=== PATIENT | female | born 1985 ===

== ENCOUNTER 2016-11-11 13:27 | Emergency (ER) | payer OTHER ==
[2016-11-11 15:29] VITALS: BP 110/75; PULSE 90; RESP 18; TEMP 98; O2SAT 100
--- NOTE | 2016-11-11 16:09 | C.PDOC ---
History Of Present Illness 31 yr old female presents to the ER with complaints of left shoulder pain. Patient is a [employer] employee. Patient states 1 year ago she injured her shoulder but never had any sort of follow up or proper diagnoses. State sthe pain comes back when she is usually doing any sort of heavy work, but this week the pain has increased, reports 6/10, dull and has decrease ROM, flexion and extension over the rotator cuff. Patient denies fever, chills, chest pain, vomiting, neck pain, headache, back pain, weakness or numbness. Time Seen by Provider: 11/11/16 15:49 Chief Complaint (Nursing): Upper Extremity Problem/Injury History Per: Patient History/Exam Limitations: no limitations Onset/Duration Of Symptoms: Persistent Current Symptoms Are (Timing): Still Present Quality: Dull Pain Scale Rating Of: 6 Past Medical History Reviewed: Historical Data, Nursing Documentation, Vital Signs Vital Signs: Last Vital Signs Temp 98.0 F 11/11/16 15:27 Pulse 90 11/11/16 15:27 Resp 18 11/11/16 15:27 BP 110/75 11/11/16 15:27 Pulse Ox 100 11/11/16 16:10 - Medical History PMH: Asthma, Gastrointestinal Ulcer Family History: States: No Known Family Hx - Social History Hx Tobacco Use: No Hx Alcohol Use: No Hx Substance Use: No - Immunization History Hx Tetanus Toxoid Vaccination: Yes Hx Influenza Vaccination: Yes Hx Pneumococcal Vaccination: Yes Review Of Systems Except As Marked, All Systems Reviewed And Found Negative. Constitutional: Negative for: Fever, Chills Cardiovascular: Negative for: Chest Pain Gastrointestinal: Negative for: Vomiting Musculoskeletal: Positive for: Shoulder Pain (Left ). Negative for: Neck Pain, Back Pain Neurological: Negative for: Weakness, Numbness, Headache Physical Exam - Physical Exam Appears: Well, Non-toxic, No Acute Distress Skin: Warm, Dry, No Rash Head: Atraumatic, Normacephalic Oral Mucosa: Moist Chest: Symmetrical, No Tenderness Cardiovascular: Rhythm Regular, No Murmur Respiratory: Normal Breath Sounds, No Rales, No Rhonchi, No Stridor, No Wheezing Extremity: Tenderness (Right Shoulder - Tenderness to the AC joint and anterior glumar fossa), No Deformity, Other (Decrease ROM left shoulder) Neurological/Psych: Oriented x3, Normal Speech, Normal Motor ED Course And Treatment O2 Sat by Pulse Oximetry: 100 Disposition Counseled Patient/Family Regarding: Diagnosis, Need For Followup, Rx Given - Disposition Referrals: Ran Olson MD [Non-Staff] - Wendy Bradford MD [Staff Provider] - Disposition: HOME/ ROUTINE Disposition Time: 16:07 Condition: GOOD Prescriptions: traMADol/Acetaminophen [Ultracet 37.5/325 mg] 1 tab PO HS PRN #12 tab PRN Reason: pain Instructions: Musculoskeletal Pain (ED) Forms: General Discharge Instructions - Clinical Impression Clinical Impression: Musculoskeletal pain - Scribe Statement The provider has reviewed the documentation as recorded by the Scribe Marcella Andrea Provider Attestation: All medical record entries made by the Scribe were at my direction and personally dictated by me. I have reviewed the chart and agree that the record accurately reflects my personal performance of the history, physical exam, medical decision making, and the department course for this patient. I have also personally directed, reviewed, and agree with the discharge instructions and disposition.
== END 2016-11-11 16:13 | disposition home or self-care (01) ==
LOC: C.ER 13:27
DX: M79.1 Myalgia (principal)

== ENCOUNTER 2018-06-23 13:08 | Emergency (ER) | payer OTHER ==
[2018-06-23 13:31] VITALS: BP 125/73; PULSE 74; RESP 20; TEMP 98.3; O2SAT 99
[2018-06-23 14:50] LABS: HCG,QUALITATIVE URINE NEGATIVE (NEGATIVE)
[2018-06-23 14:54] LABS: SQUAMOUS EPITHIAL 4 /hpf (0-5); URINE BACTERIA RARE (<OCC); URINE BILIRUBIN NEGATIVE (NEGATIVE); URINE BLOOD 1+ (NEGATIVE); URINE CLARITY Hazy (Clear); URINE COLOR Yellow (YELLOW); URINE GLUCOSE (UA) NORMAL (Normal); URINE LEUKOCYTE ESTERASE TRACE Leu/uL (Negative); URINE PROTEIN NEGATIVE (NEGATIVE); URINE UROBILINOGEN NORMAL mg/dL (0.2-1.0)
--- NOTE | 2018-06-23 15:01 | C.PDOC ---
History Of Present Illness 33 yo female come in for evaluation of Right flank pain gradually developed since today AM. Pt reports, pain is localized and worse with movement. Pt denies any known trauma or injury, fever, c hills, CP, SOB, dyspnea, cough, abd. pain, N/V/D, UTI sx, vaginal discharge. Ambulate to ED for evaluation, not in any apparent distress. Time Seen by Provider: 06/23/18 14:12 Chief Complaint (Nursing): Back Pain History Per: Patient Past Medical History Reviewed: Historical Data, Nursing Documentation, Vital Signs Vital Signs: Last Vital Signs Temp 98.3 F 06/23/18 13:27 Pulse 74 06/23/18 13:27 Resp 20 06/23/18 13:27 BP 125/73 06/23/18 13:27 Pulse Ox 99 06/23/18 13:27 - Medical History PMH: Asthma, Gastrointestinal Ulcer Denies: Chronic Kidney Disease Family History: States: Unknown Family Hx - Social History Hx Tobacco Use: No Hx Alcohol Use: No Hx Substance Use: No - Immunization History Hx Tetanus Toxoid Vaccination: Yes Hx Influenza Vaccination: Yes Hx Pneumococcal Vaccination: Yes Review Of Systems Except As Marked, All Systems Reviewed And Found Negative. Constitutional: Negative for: Fever, Chills ENT: Negative for: Throat Pain Cardiovascular: Negative for: Chest Pain, Palpitations, Light Headedness Respiratory: Negative for: Cough, Shortness of Breath, Wheezing Gastrointestinal: Negative for: Nausea, Vomiting, Abdominal Pain Musculoskeletal: Positive for: Back Pain Skin: Negative for: Rash Neurological: Negative for: Weakness, Numbness, Altered Mental Status Physical Exam - Physical Exam Appears: Well, Non-toxic, No Acute Distress Skin: Normal Color, Warm, Dry, No Rash Head: Normacephalic Eye(s): bilateral: PERRL Nose: No Flaring, No Discharge Oral Mucosa: Moist Throat: No Erythema Neck: Supple Cardiovascular: Rhythm Regular, No Murmur, No JVD Respiratory: No Decreased Breath Sounds, No Accessory Muscle Use, No Stridor, No Wheezing Gastrointestinal/Abdominal: Soft, No Tenderness, No Distention, No Guarding, No Rebound Back: No CVA Tenderness, No Vertebral Tenderness, No Paraspinal Tenderness, Other (Right periscapular tenderness extend down to Right flank, no edema, no skin changes. No palpable deformity.) Extremity: Normal ROM, No Pedal Edema, No Deformity, No Swelling Neurological/Psych: Oriented x3, Normal Speech, Normal Motor, Normal Sensation, Normal Reflexes ED Course And Treatment O2 Sat by Pulse Oximetry: 99 Pulse Ox Interpretation: Normal Progress Note: On re-evaluation, pt is afebrile, hemodynamicaly stable. Non- toxic. Ambulatory in ED with stable gait. ABd: benign, (-) guarding, (-) rebound. back: (-) CVA tenderness. Neurological intact. UA- no acute findings. Pt has clinical findings c/w Right flank pain r/o musculoskeletal pain. Pt advised. ref. to F/u with PMD in 2-3 days for re-eval. return if any new changes. Disposition Counseled Patient/Family Regarding: Studies Performed, Diagnosis, Need For Followup, Rx Given - Disposition Referrals: Irvin Terrazas MD [Staff Provider] - Disposition: HOME/ ROUTINE Disposition Time: 14:57 Condition: STABLE Additional Instructions: Light duty, avoid heavy lifting take medication as prescribed as need Follow up with PMD in 2-3 days for re-evaluation. return to Ed if any worsening or new changes. Prescriptions: Ibuprofen [Motrin Tab] 600 mg PO BID #14 tab Methocarbamol [Robaxin] 500 mg PO TID #14 tab traMADol [Ultram] 50 mg PO TID #7 tab Instructions: Flank Pain - Clinical Impression Clinical Impression: Musculoskeletal pain
== END 2018-06-23 15:17 | disposition home or self-care (01) ==
LOC: C.ER 13:08
DX: M79.18 Myalgia, other site (principal)

== ENCOUNTER 2018-08-14 10:44 | Outpatient (CLI) | payer OTHER | END 2018-08-14 10:45 | disposition home or self-care (01) | LOC: C.USIC 10:45 ==

== ENCOUNTER 2018-08-17 16:17 | Outpatient (CLI) | payer OTHER | END 2018-08-17 16:18 | disposition home or self-care (01) | LOC: C.MRIC 16:18 ==

== ENCOUNTER 2018-09-05 08:20 | Outpatient (CLI) | payer OTHER | END 2018-09-05 08:21 | disposition home or self-care (01) | LOC: C.CTH 08:20 ==

== ENCOUNTER 2018-09-17 11:54 | Outpatient (CLI) | payer OTHER | END 2018-09-17 11:55 | disposition home or self-care (01) | LOC: C.PAT 11:54 | DX: K42.9 Umbilical hernia without obstruction or gangrene (principal); K76.0 Fatty (change of) liver, not elsewhere classified ==

== ENCOUNTER 2018-09-23 06:09 | Day surgery (SDC) | payer OTHER ==
[2018-09-17 12:05] VITALS: BMI 44.4
[2018-09-23] MEDS ORDERED: ceFAZolin 1 gm in NS 1 GM/100 ML BAG IVPB ONE (07:23)
[2018-09-23] MEDS ORDERED: Sodium Chloride 0.9% 20 ML IV ONE ×2 (07:23→09:15)
[2018-09-23] MEDS ORDERED: Bupivacaine 0.25% 20 ML INJ IJ ONE (07:23)
[2018-09-23] MEDS ORDERED: Lidocaine/Epinephrine 1% 1:100000 10 ML IJ ONE (07:23)
[2018-09-23] MEDS ORDERED: Midazolam 2 MG/2 ML VIAL ONE (07:44)
[2018-09-23] MEDS ORDERED: Propofol 10 mg/ml Inj (20 ML) ONE (07:46)
[2018-09-23] MEDS ORDERED: Bupivacaine Liposomal Inj 20 ml INJ ONE (08:04)
[2018-09-23] MEDS ORDERED: Succinylcholine Chloride 20 mg/ml Syr (5 ml) IV ONE (08:08)
[2018-09-23] MEDS ORDERED: Neostigmine 1:1000 (1 mg/ml) Inj ONE (10:00)
[2018-09-23] MEDS ORDERED: Morphine 4 MG/ML VIAL ONE (10:28)
[2018-09-23] MEDS ORDERED: HYDROmorphone 0.5 mg/0.5 ml ISec IVP PRN (10:42)
--- NOTE | 2018-09-23 10:51 | PCM.SURG1 ---
Surgeon's Initial Post Op Note - Surgeon's Notes Surgeon: Sadiq Graham MD Manager Decision Support: DIEGO Alarcon Type of Anesthesia: General Endo Pre-Operative Diagnosis: Umbilical Hernia. Morbid Obesity. Fatty Liver. Abdominal Pain Operative Findings: Umbilical Hernia 2x2 cm. Diastasis of Rectus muscles 8x4 cm. Ventral hernia in upper midline 2x2 cm. Morbid Obesity. Fatty Liver Post-Operative Diagnosis: Umbilical Hernia 2x2 cm. Diastasis of Rectus muscles 8x4 cm. Ventral hernia in upper midline 2x2 cm. Morbid Obesity. Fatty Liver Operation Performed: Robotic Umbilical Hernia repair with mesh 2x2 cm. Robotic Diastasis of Rectus muscles repair with mesh 8x4 cm. Robotic Ventral hernia in upper midline repair with mesh 2x2 cm. Lap B/L TAP Block placement. Liver biopsy true cut Specimen/Specimens Removed: Umbilical hernia sac and content. Ventral hernia sac and content. Liver biopsy Estimated Blood Loss: EBL {In ML}: 10 Blood Products Given: N/A Drains Used: No Drains Post-Op Condition: Good Date of Surgery/Procedure: 09/23/18 Time of Surgery/Procedure: 10:52
[2018-09-23 12:33] VITALS: RESP 18
--- NOTE | 2018-09-23 14:18 | OP ---
PROCEDURE DATE: 09/23/2018 PREOPERATIVE DIAGNOSES: 1. Umbilical hernia. 2. Fatty liver. 3. Morbid obesity. 4. Upper abdominal pain. POSTOPERATIVE DIAGNOSES: 1. Umbilical hernia, approximately 2 x 2 cm size. 2. Ventral hernia in upper midline. 3. Diastasis recti, 8 x 4 cm size. 4. Fatty liver. 5. Morbid obesity. PROCEDURES DONE: 1. Robotic umbilical hernia repair with mesh. 2. Robotic ventral hernia repair with mesh. 3. Robotic diastasis recti repair with mesh. 4. Laparoscopic bilateral transverse abdominis plane block placement. 5. Liver biopsy, Ismael-Cut. SURGEON: Ted Graham MD SENIOR APPLICATIONS ENGINEER: DIEGO Antonio ANESTHESIA: General endotracheal tube anesthesia. ESTIMATED BLOOD LOSS: Around 10 mL DRAINS: None. SPECIMENS TO PATHOLOGY: 1. Umbilical hernia with sac and content was sent to pathology. 2. Ventral hernia with sac and content was sent to pathology. COMPLICATIONS: None. INTRAOPERATIVE FINDINGS: The patient had diastasis of the rectus muscles of approximately 8 x 4 cm size and the patient also had ventral hernia through the diastasis and that was 2 x 2 cm in size in upper midline. The patient had umbilical hernia of 2 x 2 cm size. INTRAOPERATIVE STEPS: This is a 33-year-old female who was diagnosed with fatty liver, umbilical hernia and the patient had upper abdominal pain and the patient was consented for robotic umbilical hernia repair with mesh, with liver biopsy Ismael-Cut, and the patient was brought to the OR, placed supine on the operating table. After induction of anesthesia, the abdomen was prepped and draped in the usual sterile fashion. The left upper quadrant incision was made using the Visiport technique. Peritoneal cavity was entered. Pneumo was created. Another 3-mm port was placed in the left flank and left lower quadrant. After that the robot was brought in. Camera arm as well as arm 1 and arm 2 were docked. First, the umbilical hernia was reduced back into the peritoneal cavity and preperitoneal dissection was done. The patient had diastasis recti approximately 8 x 4 cm starting in the supraumbilical region; and the patient also had another ventral hernia through the diastasis recti and that was also reduced and the sac was excised and it was sent off the table for pathology. Now the umbilical hernial defect was closed with #1 Prolene V-Loc suture in two layers. Then, the diastasis recti was also repaired with approximation of the right and left rectus muscles in the midline and repair was done in a two layer; and the ventral hernia defect that was in the upper part of diastasis that was also repaired with #1 Prolene V-Loc suture in a two layer; and after that the large 12 x 8 cm mesh was introduced and the mesh was placed to cover all the defects and the mesh was implanted laparoscopically after undocking the robot and removing all the instruments; and now the liver biopsy was done percutaneously. The pass was made to the liver and the biopsy specimen was sent off the table for the pathology and now the laparoscopic tap block was given. The 30:30 mL of Exparel with Decadron was given in the left and right transverse abdominal muscles plane area, and after proper tap block, all the ports were taken out under vision. Pneumo was deflated. All the port sites were closed in two layers, subcu with 2-0 Vicryl, skin with 4-0 Monocryl, and dry sterile dressing was applied. The patient tolerated the procedure well. Count of instrument and gauze was correct. There was no apparent complication. The patient was extubated in OR and sent to the postanesthesia care unit in stable condition. Ted Graham MD
[2018-09-23 15:36] VITALS: BP 99/56; PULSE 89; TEMP 97.6; O2SAT 97
== END 2018-09-23 15:45 | disposition home or self-care (01) ==
LOC: C.SDS 06:09
PROVIDERS: ATTEND Surgery Surgical Critical Care
DX: K42.9 Umbilical hernia without obstruction or gangrene (principal); K76.0 Fatty (change of) liver, not elsewhere classified; K43.9 Ventral hernia without obstruction or gangrene; M62.08 Separation of muscle (nontraumatic), other site; E66.01 Morbid (severe) obesity due to excess calories; R10.10 Upper abdominal pain, unspecified; Z68.41 Body mass index [BMI] 40.0-44.9, adult
CPT/HCPCS: 22999; 36415; 47000; 49652; 64488; 86850; 86900; 88302; 88307; C1781; J0690; J2250; J2270; J2405; J2704; J2710; J3010

== ENCOUNTER 2018-10-26 12:07 | Emergency (ER) | payer OTHER ==
[2018-10-26 12:07] VITALS: BMI 44.4
[2018-10-26 13:04] VITALS: RESP 18; O2SAT 100
[2018-10-26 14:31] LABS: BASO % 0.3 % (0.0-2.0); EOS # 0.1 K/uL (0.0-0.7); HEMOGLOBIN 14.3 g/dL (11.0-16.0); LYMPH # 2.9 K/uL (1.0-4.3); MEAN CORPUSCULAR HEMOGLOBIN 29.9 pg (27.0-31.0); MEAN CORPUSCULAR HGB CONC 33.7 g/dL (33.0-37.0); MEAN PLATELET VOLUME 8.3 fL (7.2-11.7); MONO # 0.7 K/uL (0.0-0.8); MONO % 6.8 % (0.0-10.0); NEUT # 6.6 K/uL (1.8-7.0); NEUT % 63.9 % (50.0-75.0); NRBC % 0.1 % (0.0-2.0); RBC 4.77 Mil/uL (3.80-5.20); RED CELL DISTRIBUTION WIDTH 13.9 % (11.5-14.5); WHITE BLOOD COUNT 10.3 K/uL (4.8-10.8)
[2018-10-26 14:33] LABS: HCG,QUALITATIVE URINE NEGATIVE (NEGATIVE)
[2018-10-26 14:33] LABS: MEAN CELL VOLUME 88.7 fL (81.0-99.0)
[2018-10-26 14:48] LABS: SQUAMOUS EPITHIAL 6 /hpf (0-5); URINE BACTERIA RARE (<OCC); URINE BILIRUBIN NEGATIVE (NEGATIVE); URINE BLOOD 3+ (NEGATIVE); URINE CLARITY Hazy (Clear); URINE COLOR Yellow (YELLOW); URINE GLUCOSE (UA) NORMAL (Normal); URINE LEUKOCYTE ESTERASE 3+ Leu/uL (Negative); URINE PROTEIN NEGATIVE (NEGATIVE); URINE UROBILINOGEN NORMAL mg/dL (0.2-1.0)
[2018-10-26] MEDS ORDERED: Sodium Chloride 0.9% 1,000 ML IV ONE (15:04)
--- NOTE | 2018-10-26 15:24 | C.PDOC ---
History Of Present Illness 33 y/o female presents to the ER complaining of abdominal pain which began last night. Patient states that she had a hernia repair performed by on 09/23/18. Patient reports that she has subjective fever,chills, and nausea. She notes that she took Aleve without significant relief.Denies having CP, SOB, and vomiting. Time Seen by Provider: 10/26/18 14:30 Chief Complaint (Nursing): Abdominal Pain History Per: Patient History/Exam Limitations: no limitations Onset/Duration Of Symptoms: Days Current Symptoms Are (Timing): Still Present Severity: Moderate Past Medical History Reviewed: Historical Data, Nursing Documentation, Vital Signs Vital Signs: Last Vital Signs Temp 98.5 F 10/26/18 13:00 Pulse 77 10/26/18 13:00 Resp 18 10/26/18 13:00 BP 109/74 10/26/18 13:00 Pulse Ox 100 10/26/18 13:00 - Medical History PMH: Asthma (SEASONAL NO MEDS), Colonic Polyps, Gastritis, Gastrointestinal Ulcer, Migraine (APPT. NEUROLOGIST 09-28-18) Denies: Chronic Kidney Disease Surgical History: Endoscopy Family History: States: No Known Family Hx - Social History Hx Tobacco Use: No Hx Alcohol Use: No Hx Substance Use: No - Immunization History Hx Tetanus Toxoid Vaccination: Yes Hx Influenza Vaccination: No Hx Pneumococcal Vaccination: Yes Review Of Systems Except As Marked, All Systems Reviewed And Found Negative. Constitutional: Positive for: Fever (subjective fever), Chills Cardiovascular: Negative for: Chest Pain Respiratory: Negative for: Shortness of Breath Gastrointestinal: Positive for: Nausea, Abdominal Pain. Negative for: Vomiting Physical Exam - Physical Exam Appears: Non-toxic, No Acute Distress Skin: Normal Color, Warm, Dry Head: Atraumatic, Normacephalic Eye(s): bilateral: Normal Inspection Nose: Normal Oral Mucosa: Moist Neck: Supple Chest: Symmetrical Cardiovascular: Rhythm Regular Respiratory: Normal Breath Sounds, No Rales, No Rhonchi, No Wheezing Gastrointestinal/Abdominal: Soft, Tenderness (diffuse tenderness), No Guarding, No Rebound, Other (obese) Neurological/Psych: Oriented x3, Normal Speech ED Course And Treatment - Laboratory Results Result Diagrams: 10/26/18 14:21 10/26/18 15:41 Lab Results: Urine Color Yellow (YELLOW) 10/26/18 14:16 Urine Clarity Hazy (Clear) 10/26/18 14:16 Urine pH 5.0 (5.0-8.0) 10/26/18 14:16 Ur Specific [place] 1.011 (1.003-1.030) 10/26/18 14:16 Urine Protein Negative mg/dL (NEGATIVE) 10/26/18 14:16 Urine Glucose (UA) Normal mg/dL (Normal) 10/26/18 14:16 Urine Ketones Negative mg/dL (NEGATIVE) 10/26/18 14:16 Urine Blood 3+ (NEGATIVE) H 10/26/18 14:16 Urine Nitrate Negative (NEGATIVE) 10/26/18 14:16 Urine Bilirubin Negative (NEGATIVE) 10/26/18 14:16 Urine Urobilinogen Normal mg/dL (0.2-1.0) 10/26/18 14:16 Ur Leukocyte Esterase 3+ Cynthia/uL (Negative) H 10/26/18 14:16 Urine WBC (Auto) 52 /hpf (0-5) H 10/26/18 14:16 Urine RBC (Auto) 31 /hpf (0-3) H 10/26/18 14:16 Ur Squamous Epith Cells 6 /hpf (0-5) H 10/26/18 14:16 Urine Bacteria Rare (<OCC) 10/26/18 14:16 Urine HCG, Qual Negative (NEGATIVE) 10/26/18 14:16 Urine HCG, Qual Negative (NEGATIVE) 10/26/18 14:16 O2 Sat by Pulse Oximetry: 100 (RA) Pulse Ox Interpretation: Normal Medical Decision Making Medical Decision Making: Plan: --Labs --UA --HCG, Qual. --Pepcid IV --IV Fluids Disposition - Disposition Disposition: HOME/ ROUTINE Disposition Time: 18:28 Condition: STABLE Forms: [facility] (Belgian) - Clinical Impression Clinical Impression: Abdominal pain - Scribe Statement The provider has reviewed the documentation as recorded by the Jaibe Magdi Agosto Provider Attestation: All medical record entries made by the Scribe were at my direction and personally dictated by me. I have reviewed the chart and agree that the record accurately reflects my personal performance of the history, physical exam, medical decision making, and the department course for this patient. I have also personally directed, reviewed, and agree with the discharge instructions and disposition. Physician Patient Turnover Patient Signed Over To: Catina Samaniego Handoff Comments: Pending CT abdomen and discussion with Dr. Hull
[2018-10-26] MEDS ORDERED: Sodium Chloride 0.9% 1,000 ML ONE (15:28)
[2018-10-26] MEDS ORDERED: Iohexol 240 (50 ml) PO STA (15:33)
[2018-10-26] MEDS ORDERED: Iohexol 240 (50 ml) ONE (15:48)
[2018-10-26 16:01] LABS: ALB/GLOB RATIO 1.3 (1.0-2.1); ALBUMIN 4.4 g/dL (3.5-5.0); ALT/SGPT 30 U/L (9-52); AST/SGOT 33 U/L (14-36); BLOOD UREA NITROGEN 11 mg/dL (7-17); CALCIUM 9.5 mg/dl (8.6-10.4); GFR NON-AFRICAN AMERICAN > 60; LIPASE 54 U/L (23-300)
--- NOTE | 2018-10-26 17:34 | CP.PCM.CON ---
History of Present Illness - History of Present Illness History of Present Illness: General Surgery - Dr. Graham 33yo F w/ hx of robotic ventral hernia repair 09/23/18, presenting to the hospital with 1 day of abdominal pain, nausea, and urinary frequency, subjective fevers and chills. Pt denies any problems after her hernia repair. She states that last night she began to have epigastric/midline abdominal pain, non- radiating, dull-aching pain. She denies any aggravating or alleviating factors. Pt also admits to nausea and urinary frequency, and subjective fevers/chills. She denies any Vomiting, Diarrhea, Constipation, Dysuria, Hematuria. She has been having regular bowel movements. PMH: Asthma, GERD, PUD PSH: robotic ventral and umbilical hernia repairs, tubal ligation, ovarian cystectomy Allergy to Iodine/IV contrast Review of Systems - Review of Systems All systems: reviewed and no additional remarkable complaints except (as per HPI) Past Patient History - Infectious Disease Hx of Infectious Diseases: None - Past Medical History & Family History Past Medical History?: Yes - Past Social History Smoking Status: Current Some Days Smoker - CARDIAC Hx Cardiac Disorders: No - PULMONARY Hx Asthma: Yes (SEASONAL NO MEDS) - NEUROLOGICAL Hx Migraine: Yes (APPT. NEUROLOGIST 09-28-18) - HEENT Hx HEENT Problems: Yes - RENAL Hx Chronic Kidney Disease: No - ENDOCRINE/METABOLIC Hx Endocrine Disorders: No - HEMATOLOGICAL/ONCOLOGICAL Hx Blood Disorders: No - INTEGUMENTARY Hx Dermatological Problems: No - MUSCULOSKELETAL/RHEUMATOLOGICAL Hx Musculoskeletal Disorders: Yes Hx Back Pain: Yes (NECK AND LOW BACK) Hx Herniated Disk: Yes (CERVICAL / LUMBAR) - GASTROINTESTINAL Hx Gastritis: Yes - GENITOURINARY/GYNECOLOGICAL Hx Genitourinary Disorders: No Hx Urinary Tract Infection: Yes - PSYCHIATRIC Hx Substance Use: No - SURGICAL HISTORY Hx Surgeries: Yes Hx Herniorrhaphy: Yes (09/23/18) Hx Tubal Ligation: Yes Other/Comment: Right ovarian cyst 09/2011 - ANESTHESIA Hx Anesthesia: Yes Hx Anesthesia Reactions: No Hx Malignant Hyperthermia: No Meds Allergies/Adverse Reactions: Allergies Allergy/AdvReac Type Severity Reaction Status Date / Time Iodinated Contrast- Oral and Allergy Intermediate SWELLING Verified 10/26/18 13:00 IV Dye Iodine and Iodide Containing Allergy Intermediate SWELLING Verified 10/26/18 13:00 Produc - Medications Medications: Current Medications Ceftriaxone Sodium 1 gm/ (Sodium Chloride) 100 mls @ 100 mls/hr IVPB STAT STA; Protocol Stop: 10/26/18 17:46 Last Admin: 10/26/18 16:53 Dose: 100 mls/hr Physical Exam - Constitutional Appears: Well, No Acute Distress - Head Exam Head Exam: ATRAUMATIC, NORMAL INSPECTION, NORMOCEPHALIC - Eye Exam Eye Exam: Normal appearance - Respiratory Exam Respiratory Exam: Clear to Auscultation Bilateral, NORMAL BREATHING PATTERN - Cardiovascular Exam Cardiovascular Exam: REGULAR RHYTHM - GI/Abdominal Exam GI & Abdominal Exam: Soft, Tenderness (mild ttp epigastric and periumbilical regions). absent: Distended, Firm, Guarding, Hernia, Rebound, Rigid - Neurological Exam Neurological exam: Alert, Oriented x3 - Psychiatric Exam Psychiatric exam: Normal Affect, Normal Mood - Skin Skin Exam: Dry, Intact Results - Vital Signs Recent Vital Signs: Last Vital Signs Temp 98.5 F 10/26/18 13:00 Pulse 77 10/26/18 13:00 Resp 18 10/26/18 13:00 BP 109/74 10/26/18 13:00 Pulse Ox 100 10/26/18 15:46 - Labs Result Diagrams: 10/26/18 14:21 10/26/18 15:41 Labs: Laboratory Results - last 24 hr 10/26/18 10/26/18 10/26/18 14:16 14:21 15:41 WBC 10.3 RBC 4.77 Hgb 14.3 Hct 42.3 MCV 88.7 D MCH 29.9 MCHC 33.7 RDW 13.9 Plt Count 380 MPV 8.3 Neut % (Auto) 63.9 Lymph % (Auto) 28.0 [place] % (Auto) 6.8 Eos % (Auto) 1.0 Baso % (Auto) 0.3 Neut # (Auto) 6.6 Lymph # (Auto) 2.9 [place] # (Auto) 0.7 Eos # (Auto) 0.1 Baso # (Auto) 0.0 Sodium 137 Potassium 4.3 Chloride 104 Carbon Dioxide 27 Anion Gap 11 BUN 11 Creatinine 0.7 Est GFR ( Amer) > 60 Est GFR (Non-Af Amer) > 60 Random Glucose 83 Calcium 9.5 Total Bilirubin 0.5 AST 33 ALT 30 Alkaline Phosphatase 69 Total Protein 7.8 Albumin 4.4 Globulin 3.4 Albumin/Globulin Ratio 1.3 Lipase 54 Urine Color Yellow Urine Clarity Hazy Urine pH 5.0 Ur Specific [place] 1.011 Urine Protein Negative Urine Glucose (UA) Normal Urine Ketones Negative Urine Blood 3+ H Urine Nitrate Negative Urine Bilirubin Negative Urine Urobilinogen Normal Ur Leukocyte Esterase 3+ H Urine WBC (Auto) 52 H Urine RBC (Auto) 31 H Ur Squamous Epith Cells 6 H Urine Bacteria Rare Urine HCG, Qual Negative Assessment & Plan - Assessment and Plan (Free Text) Assessment: 33 yo F w/ abdominal pain s/p robotic hernia repair 09/23, + UTI -F/U CT Abdomen pelvis w/ PO contrast -Abx for treatment of UTI -Pain control prn -Further reccs to follow pending CT DW Dr. Gladys Roberson PGY4
--- NOTE | 2018-10-26 19:01 | CT ---
PROCEDURE: CT Abdomen and Pelvis without IV contrast. HISTORY: abd pain COMPARISON: CT abdomen and pelvis without contrast performed 09/05/18 TECHNIQUE: Contiguous axial images of the abdomen and pelvis. Oral contrast was administered. No IV contrast given. Coronal and Sagittal reformats generated and reviewed. Radiation dose: Total exam DLP = 1088.13 mGy-cm. This CT exam was performed using one or more of the following dose reduction techniques: Automated exposure control, adjustment of the mA and/or kV according to patient size, and/or use of iterative reconstruction technique. FINDINGS: There is limited evaluation of the solid organs without the administration of IV contrast. LOWER THORAX: No visible consolidation, pleural effusion, or pneumothorax. Visualized portions of the heart appear within normal limits of size. LIVER: Hypoattenuation of the liver compatible with hepatic steatosis. Hypoattenuation of adjacent to the gallbladder fossa favored to represent fatty sparing. GALLBLADDER AND BILE DUCTS: Unremarkable unenhanced appearance. PANCREAS: Unremarkable unenhanced appearance. SPLEEN: Unremarkable unenhanced appearance. ADRENALS: Unremarkable unenhanced appearance. KIDNEYS AND URETERS: No hydronephrosis or obstructing renal calculus. BLADDER: The urinary bladder appears unremarkable. REPRODUCTIVE: Uterus is present. APPENDIX: Unremarkable. BOWEL: The stomach is nondistended. The bowel loops appear within normal limits of caliber without evidence of intestinal obstruction. PERITONEUM: No significant free fluid. No definite free air. LYMPH NODES: Nonspecific prominent bilateral inguinal lymph nodes. VASCULATURE: No aortic aneurysm. BONES: No acute osseous abnormality is detected. OTHER FINDINGS: None. IMPRESSION: No acute abdominal or pelvic pathology identified. Additional findings as above.
[2018-10-26 19:34] VITALS: BP 114/78; PULSE 69; TEMP 98.8
--- NOTE | 2018-10-26 23:51 | RAD ---
Date of service: 10/26/2018 PROCEDURE: Radiographs of the chest and abdomen (obstructive series) HISTORY: s/p surgery COMPARISON: Chest radiograph dated 09/17/2018; CT scan of the abdomen pelvis dated 09/05/2017. TECHNIQUE: AP radiograph of the chest, with upright and supine radiographs of the abdomen. FINDINGS: CHEST: Lungs: Clear. Cardiovascular: Normal size heart. No pulmonary vascular congestion. No aortic atherosclerotic calcification present Pleura: No pleural fluid. No pneumothorax. Other findings: None. ABDOMEN AND PELVIS: Bowel: Unremarkable bowel gas pattern. No evidence of mechanical obstruction. Enteric contrast seen throughout the small bowel and in the cecum. Free air: None. Bones: Unremarkable. Other findings: None. IMPRESSION: Unremarkable radiographs of chest and abdomen. No evidence of mechanical bowel obstruction.
== END 2018-10-26 19:35 | disposition home or self-care (01) ==
LOC: C.ER 12:07
DX: N39.0 Urinary tract infection, site not specified (principal); R10.9 Unspecified abdominal pain
CPT/HCPCS: 36415; 74022; 74176; 80053; 81001; 83690; 84703; 85025; 87086; 96365; 96375; 99284; J0696; J7030; Q9966

== ENCOUNTER 2018-11-12 08:18 | Day surgery (SDC) | payer OTHER ==
[2018-11-12] MEDS ORDERED: Propofol 10 mg/ml Inj (20 ML) ONE (10:43)
[2018-11-12] MEDS ORDERED: Midazolam 2 MG/2 ML VIAL ONE (10:43)
[2018-11-12] MEDS ORDERED: Lactated Ringer's 1,000 ML IV ONE (10:55)
[2018-11-12 12:42] VITALS: BP 126/69; O2SAT 100
[2018-11-12 14:46] VITALS: PULSE 77; RESP 16; TEMP 97.6
== END 2018-11-12 12:37 | disposition home or self-care (01) ==
LOC: C.ENDO 08:18
PROVIDERS: ATTEND Internal Medicine Gastroenterology
DX: K92.1 Melena (principal); R19.4 Change in bowel habit; K64.8 Other hemorrhoids; K29.70 Gastritis, unspecified, without bleeding
CPT/HCPCS: 43239; 45380; 84703; 88305; J2001; J2250; J2704; J7120

== ENCOUNTER 2018-11-24 10:14 | Emergency (ER) | payer OTHER ==
[2018-11-24 10:14] VITALS: BMI 44.4
[2018-11-24] MEDS ORDERED: Sodium Chloride 0.9% 1,000 ML IV ONE (10:38)
--- NOTE | 2018-11-24 10:38 | C.PDOC ---
History Of Present Illness 33 y/o female presents to the ED complaining of intermittent right upper quadrant pain for 4 days. Pain is worse with eating and also with change in position and movement. No known trauma. She otherwise denies any nausea, vomiting, fever, UTI symptoms, or change in bowel movements. Of note patient is s/p robotic ventral hernia repair 09/23/18 PMH: Asthma, GERD, PUD PSH: robotic ventral and umbilical hernia repairs, tubal ligation, ovarian cystectomy Allergy to Iodine/IV contrast Time Seen by Provider: 11/24/18 10:32 Chief Complaint (Nursing): Abdominal Pain History Per: Patient History/Exam Limitations: no limitations Onset/Duration Of Symptoms: Days (x 4) Current Symptoms Are (Timing): Still Present Location Of Pain/Discomfort: RUQ Past Medical History Reviewed: Historical Data, Nursing Documentation, Vital Signs Vital Signs: Last Vital Signs Temp 98.2 F 11/24/18 10:15 Pulse 85 11/24/18 10:15 Resp 16 11/24/18 10:15 BP 115/80 11/24/18 10:15 Pulse Ox 100 11/24/18 10:15 - Medical History PMH: Asthma, Colonic Polyps, Gastritis, Gastrointestinal Ulcer, Migraine Denies: Fractures, Chronic Kidney Disease Surgical History: Endoscopy Denies: Pacemaker Family History: States: Unknown Family Hx - Social History Hx Tobacco Use: No Hx Alcohol Use: No Hx Substance Use: No - Immunization History Hx Tetanus Toxoid Vaccination: Yes Hx Influenza Vaccination: No Hx Pneumococcal Vaccination: Yes Review Of Systems Except As Marked, All Systems Reviewed And Found Negative. Constitutional: Negative for: Fever, Chills Cardiovascular: Negative for: Chest Pain Respiratory: Negative for: Shortness of Breath Gastrointestinal: Positive for: Abdominal Pain. Negative for: Nausea, Vomiting, Diarrhea, Constipation Genitourinary: Negative for: Dysuria, Frequency, Hematuria Musculoskeletal: Negative for: Back Pain Neurological: Negative for: Weakness, Numbness Physical Exam - Physical Exam Appears: Non-toxic, No Acute Distress Skin: Warm, Dry, No Rash Head: Atraumatic, Normacephalic Eye(s): bilateral: Normal Inspection, PERRL, EOMI Neck: Normal ROM Chest: Symmetrical Cardiovascular: Rhythm Regular, No Murmur Respiratory: Normal Breath Sounds, No Accessory Muscle Use, Other (NARD) Gastrointestinal/Abdominal: Soft, No Tenderness, No Distention, No Guarding, Other (Reproducible pain with position change) Back: No CVA Tenderness, No Vertebral Tenderness Extremity: Bilateral: Atraumatic, Normal Color And Temperature Pulses: Left Radial: Normal, Right Radial: Normal Neurological/Psych: Oriented x3, Normal Speech ED Course And Treatment - Laboratory Results Result Diagrams: 11/24/18 11:02 11/24/18 11:02 O2 Sat by Pulse Oximetry: 100 (RA) Pulse Ox Interpretation: Normal - CT Scan/US Abdominal US Other Rad Studies (CT/US): Read By Radiologist, Radiology Report Reviewed CT/US Interpretation: Accession No. : [id number]. Patient Name / ID : MYA MENDEZ I / [id number]. Exam Date : 11/24/2018 11:00:37 ( Approved ). Study Comment : Sex / Age : F / 33Y. Creator : Alli Delaney MD. Dictator : Alli Delaney MD. Party Supply Specialist : Supervisor Home Energy Consultant : Alli Delaney MD. Approver2 : Report Date : 11/24/2018 11:57:31. My Comment : . Right upper quadrant abdominal ultrasound. HISTORY: Right upper quadrant abdominal pain. Comparison: CT scan dated 10/26/2018. Technique: Real-time sonography was performed through the right upper quadrant of the abdomen. FINDINGS: Limited study as the patient is not NPO. Liver: Prominent measuring 19 centimeters in length. Increased echogenicity of the hepatic parenchymal cortex suggestive for fatty infiltration versus hepatic parenchymal disease. Clinical correlation. Ovoid hypoechoic foci adjacent to the gallbladder fossa measuring 1.7 x 2.0 x 1.0 centimeters which may represent focal fatty sparing. Clinical correlation. Gallbladder: No calculi or sludge. Normal wall thickness of 2.8 millimeters. No gross wall edema. Negative sonographic Bucio's sign. Common bile duct measures 3.2 millimeters, within normal limits. Limited visualization of the pancreas. Visualized aorta and IVC are preserved. Right kidney: 10.4 x 4.0 x 4.6 ce ntimeters. No calculi or hydronephrosis. Impression: Limited study as the patient is not NPO. Increased echogenicity of the hepatic parenchymal cortex suggestive for fatty infiltration versus hepatic parenchymal disease. Clinical correlation. Ovoid hypoechoic foci adjacent to the gallbladder fossa measuring up to 2.0 centimeters which may represent focal fatty sparing. This may be better evaluated multiphasic contrast enhanced CT or MR if clinically indicated. Limited visualization of the pancreas. Progress - Re-Evaluation Re-evaluation Note: 11/24/18 12:37 PT FEELS BETTER. REQUESTING DC DUE TO FAMILIAL OBLIGATIONS - Data Reviewed Data Reviewed: Lab, Diagnostic imaging, Old records Medical Decision Making Medical Decision Making: Initial Plan: - Blood work - Urinalysis - NS IV fluids - Abdominal US - Reassess Disposition Counseled Patient/Family Regarding: Studies Performed, Diagnosis, Need For Followup, Rx Given - Disposition Referrals: YOUR,PMD [Other] Disposition: HOME/ ROUTINE Disposition Time: 12:36 Condition: IMPROVED Prescriptions: Ibuprofen [Motrin] 600 mg PO Q6 #30 tab Instructions: Acute Abdomen (Belly Pain), Adult (DC) Forms: Respi (Serbian) - Clinical Impression Clinical Impression: Abdominal pain - Scribe Statement The provider has reviewed the documentation as recorded by the Jaibru Zheng Provider Attestation: All medical record entries made by the Scribe were at my direction and personally dictated by me. I have reviewed the chart and agree that the record accurately reflects my personal performance of the history, physical exam, medical decision making, and the department course for this patient. I have also personally directed, reviewed, and agree with the discharge instructions and disposition.
[2018-11-24] MEDS ORDERED: Sodium Chloride 0.9% 1,000 ML ONE (10:51)
[2018-11-24 11:01] LABS: HCG,QUALITATIVE URINE NEGATIVE (NEGATIVE); URINE BILIRUBIN NEGATIVE (NEGATIVE); URINE CLARITY Clear (Clear); URINE COLOR YELLOW (YELLOW); URINE GLUCOSE (UA) Normal (Normal)
[2018-11-24 11:02] LABS: URINE LEUKOCYTE ESTERASE MODERATE Leu/uL (Negative); URINE PROTEIN NEGATIVE (NEGATIVE); URINE UROBILINOGEN 0.2 mg/dL (0.2-1.0)
[2018-11-24 11:04] LABS: SQUAMOUS EPITHIAL 6 /hpf (0-5); URINE BACTERIA RARE (<OCC)
[2018-11-24 11:05] LABS: URINE BLOOD 1+ (NEGATIVE)
[2018-11-24 11:10] LABS: BASO % 0.4 % (0.0-2.0); EOS # 0.1 K/uL (0.0-0.7); EOS % 0.7 % (0.0-4.0); LYMPH # 3.2 K/uL (1.0-4.3); LYMPH % 31.2 % (20.0-40.0); MEAN CELL VOLUME 88.8 fL (81.0-99.0); MEAN CORPUSCULAR HEMOGLOBIN 29.9 pg (27.0-31.0); MEAN CORPUSCULAR HGB CONC 33.6 g/dL (33.0-37.0); MEAN PLATELET VOLUME 8.6 fL (7.2-11.7); MONO # 0.7 K/uL (0.0-0.8); MONO % 6.8 % (0.0-10.0); NEUT # 6.3 K/uL (1.8-7.0); NEUT % 60.9 % (50.0-75.0); NRBC % 0.1 % (0.0-2.0); RBC 4.7 Mil/uL (3.80-5.20); RED CELL DISTRIBUTION WIDTH 14.1 % (11.5-14.5); WHITE BLOOD COUNT 10.4 K/uL (4.8-10.8)
[2018-11-24 11:28] LABS: ALB/GLOB RATIO 1.3 (1.0-2.1); ALBUMIN 4.4 g/dL (3.5-5.0); ALT/SGPT 21 U/L (9-52); AST/SGOT 19 U/L (14-36); BLOOD UREA NITROGEN 13 mg/dL (7-17); CALCIUM 9.6 mg/dl (8.6-10.4); GFR NON-AFRICAN AMERICAN > 60; LIPASE 61 U/L (23-300)
--- NOTE | 2018-11-24 12:01 | US ---
Right upper quadrant abdominal ultrasound HISTORY: Right upper quadrant abdominal pain. Comparison: CT scan dated 10/26/2018 Technique: Real-time sonography was performed through the right upper quadrant of the abdomen. FINDINGS: Limited study as the patient is not NPO. Liver: Prominent measuring 19 centimeters in length. Increased echogenicity of the hepatic parenchymal cortex suggestive for fatty infiltration versus hepatic parenchymal disease. Clinical correlation. Ovoid hypoechoic foci adjacent to the gallbladder fossa measuring 1.7 x 2.0 x 1.0 centimeters which may represent focal fatty sparing. Clinical correlation. Gallbladder: No calculi or sludge. Normal wall thickness of 2.8 millimeters. No gross wall edema. Negative sonographic Bucio's sign. Common bile duct measures 3.2 millimeters, within normal limits. Limited visualization of the pancreas. Visualized aorta and IVC are preserved. Right kidney: 10.4 x 4.0 x 4.6 centimeters. No calculi or hydronephrosis. Impression: Limited study as the patient is not NPO. Increased echogenicity of the hepatic parenchymal cortex suggestive for fatty infiltration versus hepatic parenchymal disease. Clinical correlation. Ovoid hypoechoic foci adjacent to the gallbladder fossa measuring up to 2.0 centimeters which may represent focal fatty sparing. This may be better evaluated multiphasic contrast enhanced CT or MR if clinically indicated. Limited visualization of the pancreas.
[2018-11-24 12:51] VITALS: BP 107/69; PULSE 71; RESP 18; TEMP 98
[2018-11-24 12:57] VITALS: O2SAT 100
== END 2018-11-24 13:14 | disposition home or self-care (01) ==
LOC: C.ER 10:14
DX: R10.11 Right upper quadrant pain (principal)
CPT/HCPCS: 76705; 80053; 81001; 83690; 84703; 85025; 99285; J7030